=== PATIENT | male | born 1995 | race Caucasian/White ===

== ENCOUNTER 2020-11-07 22:28 | Emergency (ER) | payer OTHER ==
[~2020-11-07] VITALS: Ht 172.7 cm; Wt 75.0 kg
--- NOTE | 2020-11-08 01:27 | PHYS DOC ---
Past Medical History Past Medical History: No Pertinent History Past Surgical History: No Surgical History, Other Additional Past Surgical Histo: WISDOM TEETH Smoking Status: Current Every Day Smoker Alcohol Use: None Drug Use: Marijuana General Adult EDM: Chief Complaint: CHEST PAIN Problems: (1) Chest pain HPI: HPI: Otherwise healthy 25-year-old male presents to the emergency department c omplaining of chest pain that has been intermittent for 1 week near his sternal area. He associates some shortness of breath with the chest pain, states anxiety is a contributing factor. He denies any family history of heart disease, any personal history of heart problems. He does smoke and use vapor cigarettes. He denies fever, cough, abdominal pain, nausea, vomiting, back emi n, trauma. Review of Systems: Review of Systems: Constitutional: Denies fever or chills. Eyes: Denies change in vision, pain. HENT: Denies congestion or sore throat. Respiratory: Admits shortness of breath, denies cough. Cardiovascular: Denies chest pain, denies edema. GI: Denies abdominal pain, nausea. : Denies change in urination, dysuria. Musculoskeletal: Denies extremity pain, or trauma. Skin: Denies rash, skin change. Neurologic: Denies headache, focal weakness. Psychiatric: Denies depression or anxiety. All other systems reviewed as negative except for what was mentioned in the HPI. Heart Score: C/O Chest Pain: Yes HEART Score for Chest Pain: HEART Score for Chest Pain Response (Comments) Value History Slighlty/Non-Suspicious 0 ECG Normal 0 Age < 45 0 Risk Factors 1 or 2 Risk Factors 1 Total 1 Family History: Family History: No family history of heart disease Current Medications: My Orders - BRYON MCKEON DO Procedure Category Date Status Time Chest Ap Only RAD 11/08/20 Logged 01:31 Ketorolac 15mg Vial PHA 11/08/20 In Process (Toradol 15mg Vial) 01:45 Hydroxyzine (Atarax) PHA 11/08/20 Complete 01:31 Allergies: Allergies: Allergies Coded Allergies Type Severity Reaction Last Updated Verified No Known Drug Allergies 11/08/20 No Physical Exam: PE: Constitutional: No acute distress, non-toxic appearance. HENT: Atraumatic, bilateral external ears normal, nose normal. Eyes: PERRLA, EOMI, conjunctiva normal, no discharge. Neck: Normal range of motion, supple, no stridor. Cardiovascular: Heart rate regular rhythm. 2+ radial pulses Lungs & Thorax: No respiratory distress, symmetrical expansion. Bilateral breath sounds clear to auscultation Chest wall: No reproducible tenderness Abdomen: Soft, no tenderness Skin: Warm, dry. Extremities: No tenderness, no cyanosis, ROM intact, no edema. Neurologic: Alert and oriented X 3, normal motor function, normal sensory function, no focal deficits noted. Non ataxic gait. GCS 15. Psychologic: Affect normal, judgment normal, mood normal. Current Patient Data: Vital Signs: Vital Signs Date Time Temp Pulse Resp B/P (MAP) Pulse Ox O2 Delivery O2 Flow Rate FiO2 11/07/20 23:30 98.3 60 16 112/75 98 Room Air 98.3 EKG: EKG: Normal sinus rhythm rate of 80, no ST-T wave changes, no ectopic beats, normal axis, normal MI, QRS, and QTc intervals. Impression: Normal EKG. interpreted by Bryon mistry D.O. Radiology/Procedures: Radiology/Procedures: No airspace disease, infiltrates or consolidations, lung delgado clear. No pneumothorax or pleural effusion. Cardiac silhouette within normal limits. No widening of mediastinum. No obvious free air seen. Impression: normal CXR. Interpreted by Bryon msitry D.O. Course & Med Decision Making: Course & Med Decision Making Patient appears well clinically, he is at very low risk for cardiac cause of his chest pain. Admitted to anxiety Departure Departure Impression: Primary Impression: Chest pain Disposition: HOME / SELF CARE / HOMELESS Condition: GOOD Referrals: NO PCP (PCP) Patient Instructions: Chest Pain (Nonspecific), [id number] Additional Instructions: You were seen in the emergency department for chest pain. Your exam and testing did not show any acute abnormality that warranted admission today but does not rule out underlying cardiovascular disease. You need to follow up with your primary doctor and/or cardiology for further evaluation. Return to the Emergency Department immediately, day or night, if you have worsening or continued chest pain, shortness of breath, nausea, sweating during chest pain, trouble breathing, chest pain with exertion (climbing stairs or walking for example), leg swelling or for any other concerns. BRYON MCKEON DO Nov 08, 2020 01:27
[2020-11-08] MEDS ORDERED: hydrOXYzine 25 MG TABLET PO STA (01:31)
[2020-11-08] MEDS ORDERED: KETOROLAC 15 MG/ML VIAL. IM ONE (01:45)
[2020-11-08 01:56] VITALS: BP 116/80
--- NOTE | 2020-11-08 05:34 | RAD ---
Study: XR CHEST 1V Indication: Chest pain. Comparison: None. Findings: The cardiomediastinal silhouette and senthil are within normal limits. No localized airspace opacity, pl eural effusion or pneumothorax. Impression: No acute radiographic abnormality of the chest. Electronically signed by: IVET LIMA MD (11/08/2020 5:31 AM) [facility]
== END 2020-11-08 01:57 | disposition home or self-care (01) ==
LOC: ER 22:28
DX: R07.89 Other chest pain (principal); R06.02 Shortness of breath; F17.200 Nicotine dependence, unspecified, uncomplicated
CPT/HCPCS: 71045; 93005; 96372; 99283; J1885

== ENCOUNTER 2021-02-03 11:57 | Emergency (ER) | payer OTHER | END 2021-02-03 13:00 | disposition left against medical advice (07) | LOC: ER 11:57 | DX: R51.9 Headache, unspecified (principal); R42 Dizziness and giddiness; Z53.21 Procedure and treatment not carried out due to patient leaving prior to being seen by health care provider ==